=== PATIENT | male | born 1970 | race Caucasian/White ===

== ENCOUNTER 2016-08-29 21:55 | Emergency (ER) | payer MEDICAID ==
[~2016-08-29] VITALS: Ht 162.6 cm; Wt 67.0 kg
[2016-08-29 22:01] VITALS: BP 162/98; PULSE 119; RESP 16; TEMP 98.9; O2SAT 100
[2016-08-29 22:10] VITALS: O2SAT 100
[2016-08-29] MEDS ORDERED: SODIUM CHLOR 0.9% 1000 ML INJ 1,000 ML IV ONE (22:15)
[2016-08-29] MEDS ORDERED: SODIUM CHLORIDE 0.9% FLUSH 10 ML FLUSH IVF PRN (22:15)
--- NOTE | 2016-08-29 22:18 | PD ---
HPI Chief Complaint: Psychiatric Symptoms Time Seen by Provider: 22:09 Travel History International Travel<30 days: No Contact w/Intl Traveler<30days: No Traveled to known affect area: No History of Present Illness HPI Patient is a 45-year-old male brought in by EMS for evaluation. When police arrived on scene patient was in a closed garage with the car running, he was revving the engine. Patient was noncompliant with shutting down the vehicle initially. Per the Goodman act report patient sent a text to his stating he would drink until he dropped and he had nothing left to live for. Patient' s family was asleep inside their home at the time of the incident. Per the police report the exhaust smell was overwhelming in patient's home. Patient denies any suicidal or homicidal ideations. He does admit to drinking 7-8 beers daily. He reports his medical history is asthma, denies any psychological history. He denies illicit drug use or tobacco use. Furthermore patient denies any previous suicide attempt. Patient stated to me that he works on his car in a closed garage because his neighbors are agitated by the noise he makes, and will call the police on him. He stated that he was replacing a transmission line in order to be able to go to work in the morning. 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 PFS Past Medical History Asthma: Yes Past Surgical History Other Surgery: Yes (knee) Social History Alcohol Use: Yes (BEER 7-8 daily) Tobacco Use: No Substance Use: No Allergies-Medications (Allergen,Severity, Reaction): Coded Allergies: Penicillin (Verified Allergy, Unknown, 08/29/16) Reported Meds & Prescriptions Reported Meds & Active Scripts Active No Active Prescriptions or Reported Medications Review of Systems Except as stated in HPI: all other systems reviewed are Neg General / Constitutional: No: Fever Eyes: No: Blurred Vision HENT: No: Headaches, Lightheadedness Cardiovascular: Positive: Tachycardia, No: Chest Pain or Discomfort Respiratory: No: Shortness of Breath Gastrointestinal: No: Nausea, Vomiting, Abdominal Pain Musculoskeletal: No: Myalgias Neurologic: No: Dizziness Psychiatric: Positive: Substance Abuse, No: Anxiety, Depression, Suicidal Ideations, Mood Disorder, Homicidal Ideation Physical Exam Narrative GENERAL: Well-developed, well-nourished, alert male. Resting comfortably in no acute distress. SKIN: Focused skin assessment warm/dry. HEAD: Atraumatic. Normocephalic. EYES: Pupils equal and round. No scleral icterus. No injection or drainage. ENT: No nasal bleeding or discharge. Mucous membranes pink and moist. NECK: Trachea midline. No JVD. CARDIOVASCULAR: Tachycardic. No murmur appreciated. RESPIRATORY: No accessory muscle use. Clear to auscultation. Breath sounds equal bilaterally. No increased work of breathing, no nasal flaring, no retractions. GASTROINTESTINAL: Abdomen soft, non-tender, nondistended. Hepatic and splenic margins not palpable. MUSCULOSKELETAL: No obvious deformities. No clubbing. No cyanosis. No edema. NEUROLOGICAL: Awake and alert. No obvious cranial nerve deficits. Motor grossly within normal limits. Normal speech. PSYCHIATRIC: Appropriate mood and affect; insight and judgment impaired. Data Data Last Documented VS Vital Signs Date Time Temp Pulse Resp B/P Pulse Ox O2 Delivery O2 Flow Rate FiO2 08/30/16 12:31 90 18 117/74 93 Room Air 08/29/16 22:10 15 08/29/16 22:01 98.9 Orders Complete Blood Count With Diff (08/29/16 22:05) Comprehensive Metabolic Panel (08/29/16 22:05) Urinalysis - C+S If Indicated (08/29/16 22:05) Electrocardiogram (08/29/16 22:05) Oximetry (08/29/16 22:05) Iv Access Insert/Monitor (08/29/16 22:05) Ecg Monitoring (08/29/16 22:05) Oxygen Administration (08/29/16 22:05) Psych Screen (08/29/16 22:05) Sodium Chloride 0.9% Flush (Ns Flush) (08/29/16 22:15) Drug Screen, Random Urine (08/29/16 22:05) Alcohol (Ethanol) (08/29/16 22:05) Salicylates (Aspirin) (08/29/16 22:05) Tylenol (Acetaminophen) (08/29/16 22:05) Sodium Chlor 0.9% 1000 Ml Inj (Ns 1000 M (08/29/16 22:15) Resp Oxygen Non Rebreathe Mask (08/29/16 ) Resp Blood Gas Carboxy Hgb (08/29/16 ) Arterial Blood Gas (Abg) (08/29/16 22:30) Diet Regular Basic (08/30/16 Breakfast) Alcohol Withdrawal Asmt-Ciwa Q4HX18 (08/30/16 06:44) Flumazenil Inj (Romazicon Inj) (08/30/16 06:45) Lorazepam (Ativan) (08/30/16 06:45) Lorazepam Inj (Ativan Inj) (08/30/16 06:45) Lorazepam (Ativan) (08/30/16 06:45) Lorazepam Inj (Ativan Inj) (08/30/16 06:45) Lorazepam Inj (Ativan Inj) (08/30/16 06:45) Lorazepam Inj (Ativan Inj) (08/30/16 06:45) ^ Seizure Precautions (08/30/16 06:44) ^ Fall Precautions (08/30/16 06:44) Labs Laboratory Tests Test 08/29/16 08/29/16 08/30/16 22:15 22:30 00:40 White Blood Count 8.5 TH/MM3 Red Blood Count 4.95 MIL/MM3 Hemoglobin 15.1 GM/DL Hematocrit 43.7 % Mean Corpuscular Volume 88.2 FL Mean Corpuscular Hemoglobin 30.5 PG Mean Corpuscular Hemoglobin 34.6 % Concent Red Cell Distribution Width 12.8 % Platelet Count 218 TH/MM3 Mean Platelet Volume 8.8 FL Neutrophils (%) (Auto) 71.2 % Lymphocytes (%) (Auto) 18.7 % Monocytes (%) (Auto) 7.7 % Eosinophils (%) (Auto) 1.8 % Basophils (%) (Auto) 0.6 % Neutrophils # (Auto) 6.1 TH/MM3 Lymphocytes # (Auto) 1.6 TH/MM3 Monocytes # (Auto) 0.7 TH/MM3 Eosinophils # (Auto) 0.2 TH/MM3 Basophils # (Auto) 0.1 TH/MM3 CBC Comment DIFF FINAL Differential Comment Sodium Level 138 MEQ/L Potassium Level 3.9 MEQ/L Chloride Level 103 MEQ/L Carbon Dioxide Level 25.0 MEQ/L Anion Gap 10 MEQ/L Blood Urea Nitrogen 13 MG/DL Creatinine 1.22 MG/DL Estimat Glomerular Filtration 64 ML/MIN Rate Random Glucose 99 MG/DL Calcium Level 8.7 MG/DL Total Bilirubin 0.4 MG/DL Aspartate Amino Transf 36 U/L (AST/SGOT) Alanine Aminotransferase 39 U/L (ALT/SGPT) Alkaline Phosphatase 64 U/L Total Protein 7.7 GM/DL Albumin 4.1 GM/DL Salicylates Level LESS THAN 1.7 MG/DL Acetaminophen Level LESS THAN 2.0 MCG/ML Ethyl Alcohol Level 228 MG/DL Blood Gas Puncture Site RT RADIAL Blood Gas Patient Temperature 98.6 Blood Gas HCO3 21 mmol/L Blood Gas Base Excess -2.3 mmol/L Blood Gas Oxygen Saturation 98 % Arterial Blood pH 7.48 Arterial Blood Partial 28 mmHg Pressure CO2 Arterial Blood Partial 365 mmHG Pressure O2 Arterial Blood Oxygen Content 18.3 Vol % Arterial Blood 0.9 % Carboxyhemoglobin Arterial Blood Methemoglobin 0.9 % Blood Gas Hemoglobin 12.6 G/DL Oxygen Delivery Device NRB Blood Gas Liter Flow 15 L/M Blood Gas Inspired Oxygen 100 % Urine Color COLORLESS Urine Turbidity CLEAR Urine pH 6.0 Urine Specific [place] 1.002 Urine Protein NEG mg/dL Urine Glucose (UA) NEG mg/dL Urine Ketones NEG mg/dL Urine Occult Blood NEG Urine Nitrite NEG Urine Bilirubin NEG Urine Urobilinogen LESS THAN 2.0 MG/DL Urine Leukocyte Esterase NEG Urine WBC LESS THAN 1 /hpf Microscopic Urinalysis Comment CULT NOT INDICATED Urine Opiates Screen NEG Urine Barbiturates Screen NEG Urine Amphetamines Screen NEG Urine Benzodiazepines Screen NEG Urine Cocaine Screen NEG Urine Cannabinoids Screen NEG MDM Medical Decision Making Medical Screen Exam Complete: Yes Emergency Medical Condition: Yes Interpretation(s) Vital Signs Date Time Temp Pulse Resp B/P Pulse Ox O2 Delivery O2 Flow Rate FiO2 08/29/16 22:01 98.9 119 16 162/98 100 Differential Diagnosis Carbon monoxide poisoning versus suicide attempt versus mood disorder versus substance abuse versus electrolyte abnormality versus cardiac arrhythmia versus other Narrative Course Patient is a 45-year-old male presenting to the emergency Department under Goodman act due to suicidal statements. On arrival patient is tachycardic, alert and oriented. Patient is denying any suicidal or homicidal ideations or history of psychiatric disorders. Labs, EKG, psych screen ordered and pending. Care of patient transferred to my attending physician at the end of my shift. Dr. Kaminski will determine patient's disposition. Scripts No Active Prescriptions or Reported Meds Aylin Wright Aug 29, 2016 22:18
[2016-08-29 22:50] LABS: BLOOD GAS BASE EXCESS -2.3 mmol/L (-2-2); BLOOD GAS CARBOXYHEMOGLOBIN 0.9 % (0-4); BLOOD GAS HCO3 21 mmol/L (22-26); BLOOD GAS METHEMOGLOBIN 0.9 % (0-2); BLOOD GAS O2 HGB SATURATION 98 % (90-100); BLOOD GAS OXYGEN CONTENT 18.3 Vol % (12.0-20.0); BLOOD GAS PCO2 28 mmHg (38-42); BLOOD GAS PO2 365 mmHG (61-120); BLOOD GAS TOTAL HGB 12.6 G/DL (12.0-16.0); CRITICAL VALUE NO; DRAW SITE RT RADIAL; FIO2 100 %; LITER FLOW 15 L/M; NUMBER OF ARTERIAL PUNCTURES 1; OXYGEN DEVICE NRB; STAT YES; TEMP CORR TO 98.6; ULNAR PULSE PRESENT
[2016-08-29 23:00] LABS: AUTOMATED NEUTROPHIL # 6.1 TH/MM3 (1.8-7.7); BASOPHIL # 0.1 TH/MM3 (0-0.2); BASOPHIL % 0.6 % (0.0-2.0); EOSINOPHIL # 0.2 TH/MM3 (0-0.4); EOSINOPHIL % 1.8 % (0.0-4.0); HEMATOCRIT 43.7 % (39.0-51.0); HEMO FLAGS DIFF FINAL; LYMPH % 18.7 % (9.0-44.0); LYMPHOCYTE # 1.6 TH/MM3 (1.0-4.8); MEAN CELL VOLUME 88.2 FL (80.0-100.0); MEAN CORPUSCULAR HEMOGLOBIN 30.5 PG (27.0-34.0); MEAN CORPUSCULAR HGB CONC 34.6 % (32.0-36.0); MONO % 7.7 % (0.0-8.0); NEUT % 71.2 % (16.0-70.0); PLATELET COUNT 218 TH/MM3 (150-450); RED BLOOD COUNT 4.95 MIL/MM3 (4.50-5.90); RED CELL DISTRIBUTION WIDTH 12.8 % (11.6-17.2); WHITE BLOOD COUNT 8.5 TH/MM3 (4.0-11.0)
--- NOTE | 2016-08-29 23:00 | PD ---
Data Data Last Documented VS Vital Signs Date Time Temp Pulse Resp B/P Pulse Ox O2 Delivery O2 Flow Rate FiO2 08/30/16 12:31 90 18 117/74 93 Room Air 08/29/16 22:10 15 08/29/16 22:01 98.9 Orders Complete Blood Count With Diff (08/29/16 22:05) Comprehensive Metabolic Panel (08/29/16 22:05) Urinalysis - C+S If Indicated (08/29/16 22:05) Electrocardiogram (08/29/16 22:05) Oximetry (08/29/16 22:05) Iv Access Insert/Monitor (08/29/16 22:05) Ecg Monitoring (08/29/16 22:05) Oxygen Administration (08/29/16 22:05) Psych Screen (08/29/16 22:05) Sodium Chloride 0.9% Flush (Ns Flush) (08/29/16 22:15) Drug Screen, Random Urine (08/29/16 22:05) Alcohol (Ethanol) (08/29/16 22:05) Salicylates (Aspirin) (08/29/16 22:05) Tylenol (Acetaminophen) (08/29/16 22:05) Sodium Chlor 0.9% 1000 Ml Inj (Ns 1000 M (08/29/16 22:15) Resp Oxygen Non Rebreathe Mask (08/29/16 ) Resp Blood Gas Carboxy Hgb (08/29/16 ) Arterial Blood Gas (Abg) (08/29/16 22:30) Diet Regular Basic (08/30/16 Breakfast) Alcohol Withdrawal Asmt-Ciwa Q4HX18 (08/30/16 06:44) Flumazenil Inj (Romazicon Inj) (08/30/16 06:45) Lorazepam (Ativan) (08/30/16 06:45) Lorazepam Inj (Ativan Inj) (08/30/16 06:45) Lorazepam (Ativan) (08/30/16 06:45) Lorazepam Inj (Ativan Inj) (08/30/16 06:45) Lorazepam Inj (Ativan Inj) (08/30/16 06:45) Lorazepam Inj (Ativan Inj) (08/30/16 06:45) ^ Seizure Precautions (08/30/16 06:44) ^ Fall Precautions (08/30/16 06:44) Labs Laboratory Tests Test 08/29/16 08/29/16 08/30/16 22:15 22:30 00:40 White Blood Count 8.5 TH/MM3 Red Blood Count 4.95 MIL/MM3 Hemoglobin 15.1 GM/DL Hematocrit 43.7 % Mean Corpuscular Volume 88.2 FL Mean Corpuscular Hemoglobin 30.5 PG Mean Corpuscular Hemoglobin 34.6 % Concent Red Cell Distribution Width 12.8 % Platelet Count 218 TH/MM3 Mean Platelet Volume 8.8 FL Neutrophils (%) (Auto) 71.2 % Lymphocytes (%) (Auto) 18.7 % Monocytes (%) (Auto) 7.7 % Eosinophils (%) (Auto) 1.8 % Basophils (%) (Auto) 0.6 % Neutrophils # (Auto) 6.1 TH/MM3 Lymphocytes # (Auto) 1.6 TH/MM3 Monocytes # (Auto) 0.7 TH/MM3 Eosinophils # (Auto) 0.2 TH/MM3 Basophils # (Auto) 0.1 TH/MM3 CBC Comment DIFF FINAL Differential Comment Sodium Level 138 MEQ/L Potassium Level 3.9 MEQ/L Chloride Level 103 MEQ/L Carbon Dioxide Level 25.0 MEQ/L Anion Gap 10 MEQ/L Blood Urea Nitrogen 13 MG/DL Creatinine 1.22 MG/DL Estimat Glomerular Filtration 64 ML/MIN Rate Random Glucose 99 MG/DL Calcium Level 8.7 MG/DL Total Bilirubin 0.4 MG/DL Aspartate Amino Transf 36 U/L (AST/SGOT) Alanine Aminotransferase 39 U/L (ALT/SGPT) Alkaline Phosphatase 64 U/L Total Protein 7.7 GM/DL Albumin 4.1 GM/DL Salicylates Level LESS THAN 1.7 MG/DL Acetaminophen Level LESS THAN 2.0 MCG/ML Ethyl Alcohol Level 228 MG/DL Blood Gas Puncture Site RT RADIAL Blood Gas Patient Temperature 98.6 Blood Gas HCO3 21 mmol/L Blood Gas Base Excess -2.3 mmol/L Blood Gas Oxygen Saturation 98 % Arterial Blood pH 7.48 Arterial Blood Partial 28 mmHg Pressure CO2 Arterial Blood Partial 365 mmHG Pressure O2 Arterial Blood Oxygen Content 18.3 Vol % Arterial Blood 0.9 % Carboxyhemoglobin Arterial Blood Methemoglobin 0.9 % Blood Gas Hemoglobin 12.6 G/DL Oxygen Delivery Device NRB Blood Gas Liter Flow 15 L/M Blood Gas Inspired Oxygen 100 % Urine Color COLORLESS Urine Turbidity CLEAR Urine pH 6.0 Urine Specific [place] 1.002 Urine Protein NEG mg/dL Urine Glucose (UA) NEG mg/dL Urine Ketones NEG mg/dL Urine Occult Blood NEG Urine Nitrite NEG Urine Bilirubin NEG Urine Urobilinogen LESS THAN 2.0 MG/DL Urine Leukocyte Esterase NEG Urine WBC LESS THAN 1 /hpf Microscopic Urinalysis Comment CULT NOT INDICATED Urine Opiates Screen NEG Urine Barbiturates Screen NEG Urine Amphetamines Screen NEG Urine Benzodiazepines Screen NEG Urine Cocaine Screen NEG Urine Cannabinoids Screen NEG MDM Medical Record Reviewed: Yes Supervised Visit with MARILYN: No Narrative Course During the course of the patients emergency department visit, the patients history, examination, and differential diagnosis were reviewed with the patient. The patient had IV access obtained and blood work sent for analysis. The patient was placed on a cardiac catheterization technician with oximetry and blood pressure monitoring. An EKG was ordered. The patient was initially evaluated by Aylin, the nurse practitioner, please see her complete history and physical. The patient's case was checked out to me at the conclusion of her shift. The patient is currently under a Goodman act due to suicidal ideations expressed to his by text and being found in a closed garage with a vehicle on. Initial ABG reveals of the patient's pH is normal and carboxyhemoglobin is 0.9. The patient's EKG shows a sinus rhythm with a heart rate of 96, no acute ST segment changes are noted. The patient was provided supplemental O2 by nonrebreather mask initially while carbon monoxide poisoning was being ruled out. The patient was given normal saline a 1 L IV fluid bolus. The patients laboratory studies were reviewed and remarkable for a CBC that is unremarkable. ABG shows a pH of 7.48, PCO2 is 28, PO2 365, carboxyhemoglobin 0.9, bicarbonate is 21. CMP is remarkable for a GFR 64, alcohol level [id number] , acetaminophen less than 2, salicylate less than 1.7. The patient has been medically cleared for evaluation by the psychiatric screener under a Goodman act. Diagnosis Primary Impression: Suicidal ideations Additional Impression: Alcohol intoxication Qualified Code: F10.129 - Alcohol intoxication, with unspecified complication Scripts No Active Prescriptions or Reported Meds Trinh Kaminski MD Aug 29, 2016 23:00
[2016-08-29 23:18] LABS: ALKALINE PHOSPHATASE 64 U/L (45-117); TOTAL BILIRUBIN ADULT 0.4 MG/DL (0.2-1.0)
[2016-08-29 23:22] LABS: ALT (GPT) 39 U/L (12-78); ANION GAP 10 MEQ/L (5-15); AST (GOT) 36 U/L (15-37); BLOOD UREA NITROGEN 13 MG/DL (7-18); CHLORIDE 103 MEQ/L (98-107); GLOMERULAR FILTRATION RATE 64 ML/MIN (>89); SODIUM (NA) 138 MEQ/L (136-145)
[2016-08-29 23:23] LABS: ACETAMINOPHEN LESS THAN 2.0 MCG/ML (10.0-30.0); POTASSIUM 3.9 MEQ/L (3.5-5.1)
[2016-08-30 00:56] LABS: BLOOD, URINE NEG (NEG); GLUCOSE,URINE NEG (NEG); KETONE, URINE NEG (NEG); NITRITE,URINE NEG (NEG); URINE COLOR COLORLESS (YELLW/STRAW)
[2016-08-30 01:01] LABS: COMMENT (UR) CULT NOT INDICATED; CULTURE IF INDICATED CULT NOT INDICATED
[2016-08-30 01:04] LABS: AMPHETAMINE, URINE NEG (NEG); BARBITURATES, URINE NEG (NEG); COCAINE, URINE NEG (NEG)
[2016-08-30 02:19] VITALS: BP 146/89; PULSE 105; RESP 18; O2SAT 97
[2016-08-30 06:00] VITALS: BP 117/74; PULSE 90; RESP 18; O2SAT 93
[2016-08-30] MEDS ORDERED: LORazepam 2 MG/ML VIAL IV PUSH PRN ×4 (06:45)
[2016-08-30] MEDS ORDERED: LORazepam 2 MG TAB PO PRN (06:45)
[2016-08-30] MEDS ORDERED: LORazepam 1 MG TAB PO PRN (06:45)
[2016-08-30] MEDS ORDERED: FLUMAZENIL 0.5 MG/5 ML VIAL IV PUSH PRN (06:45)
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
[2016-08-30 12:31] VITALS: BP 117/74; PULSE 90; RESP 18; O2SAT 93
--- NOTE | 2016-08-30 21:26 | EKG ---
Date Performed: 08/29/2016 Time Performed: 23:15:17 PTAGE: 45 years EKG: Sinus rhythm WITH FREQUENT VENTRICULAR PREMATURE COMPLEXES RIGHT ATRIAL ENLARGEMENT ABNORMAL ECG NO PREVIOUS TRACING DOCTOR: Aniyah Sunshine Interpretating Date/Time 08/30/2016 21:25:16
== END 2016-08-30 12:45 ==
LOC: NEPC 21:55 → NEPJ 08-30 12:45
DX: R45.851 Suicidal ideations (principal); F10.129 Alcohol abuse with intoxication, unspecified; F10.120 Alcohol abuse with intoxication, uncomplicated; R00.0 Tachycardia, unspecified; R94.31 Abnormal electrocardiogram [ECG] [EKG]; Z87.09 Personal history of other diseases of the respiratory system
CPT/HCPCS: 36600; 80053; 80307; 81001; 82805; 85025; 93005; 99284; J7030